=== PATIENT | female | born 1980 | race Caucasian/White ===

== ENCOUNTER 2017-10-17 05:26 | Emergency (ER) | payer OTHER, SELFPAY ==
[2017-10-17 05:26] VITALS: BP 99/66; PULSE 92; RESP 17; TEMP 36.5; O2SAT 98; BMI 20.5
--- NOTE | 2017-10-17 05:35 | ED.DCSUM_ITS ---
- ER Visit Summary Date of Service: 10/17/17 Chief Complaint: [] Right hand injury History of Present Illness: The patient is a 37 F [] injured her hand yesterday evening while walking her dog salt squirrel and pulled her over. She fell on her right hand. She is having pain in this hand with movement. Relieved with rest. Using ibuprofen. Current severity is moderate Physical Examination: [] Vital signs reviewed General: Well-nourished well-developed Head: Normocephalic atraumatic Eyes: Pupils equal round and reactive to light extraocular movements intact ENT: TMs clear no hemotympanum no trauma Neck: Nontender full range of motion Cardiovascular: Regular rate rhythm no murmurs normal S1-S2 Respiratory: No distress clear to auscultation bilaterally chest nontender Abdomen: Soft nontender nondistended normal bowel sounds no masses Back: Nontender no CVA tenderness Extremities: Tenderness with soft tissue swelling over the third through metacarpal phalangeal joints. Decreased range of motion secondary to pain Skin: Normal color no trauma Neuro alert oriented cranial nerves II through XII intact normal strength sensation reflexes Test Results: [] Emergency Department Course and Treatment: [] Given ibuprofen and ice pack. X- ray of the hand obtained and is negative. Patient given Jignesh bandage and will follow-up I feel she is is bruised her hand Treatment Plan: [] Disposition: [] Impression: [] Hand contusion This note was generated with [employer] dictation software. It may contain incorrect words, spelling, and punctuation that were not noted in review of the chart prior to signing ED Disposition - Plan for ED Patient: Chief Complaint: Upper Extremity Injury Referrals: Care Physician,No Primary [Primary Care Provider] -
[2017-10-17] MEDS: Ibuprofen 600 MG Tablet PO (05:36)
--- NOTE | 2017-10-17 05:40 | RAD_ITS ---
STUDY: X-RAY - RIGHT HAND REASON FOR EXAM: Female, 37 years old. DOG PULLED HER TO GROUND, LANDED ON HAND, SWELLING TECHNIQUE: 3 view(s) of the hand. COMPARISON: 09/12/2016 FINDINGS: Normal radiocarpal articulation. Normal distal radioulnar joint. Normal visualized carpal bones. Normal carpal articulations Normal carpometacarpal articulation of the thumb. Normal second through fifth carpometacarpal joints. Normal metacarpi. Normal metacarpophalangeal joint of the thumb. Normal interphalangeal joint of the thumb. Normal proximal and distal phalanges of the thumb. Normal metacarpophalangeal joints of the second through fifth fingers. Normal proximal and distal interphalangeal joints of the second through fifth fingers. Normal phalanges of the second through fifth fingers. The soft tissue structures are unremarkable. RAD/Hand Min 3 Views IMPRESSION: Normal x-ray examination of the hand. Electronically Signed: Ebenezer Fox MD at 5:52 EDT Tel , Service support ,
--- NOTE | 2017-10-17 05:49 | ED.DEP ---
ED Disposition - Plan for ED Patient: Disposition: Home or Assisted Living Chief Complaint: Upper Extremity Injury Instructions: ED Contusion Upper Ext Referrals: Care Physician,No Primary [Primary Care Provider] -
[2017-10-17 05:55] VITALS: BP 90/68; PULSE 83; RESP 17; O2SAT 100
== END 2017-10-17 06:04 | disposition home or self-care (01) ==
LOC: ED 06:02
PROVIDERS: Emergency Provider Emergency Medicine
DX: S60.221A Contusion of right hand, initial encounter (principal); W18.30XA Fall on same level, unspecified, initial encounter; Y93.K1 Activity, walking an animal; Y92.89 Other specified places as the place of occurrence of the external cause; Y99.8 Other external cause status
CPT/HCPCS: 73130; 99283

== ENCOUNTER 2017-11-13 17:23 | Emergency (ER) | payer OTHER, SELFPAY ==
[2017-11-13 17:24] VITALS: BP 102/56; PULSE 90; RESP 18; TEMP 36.6; O2SAT 97; BMI 20.5
[2017-11-13 17:47] VITALS: BP 128/82; PULSE 82; RESP 18; O2SAT 96
--- NOTE | 2017-11-13 18:03 | ED.DCSUM_ITS ---
- ER Visit Summary Date of Service: 11/13/17 Chief Complaint: Back pain History of Present Illness: The patient is a 37 F who noted pain and not to her tailbone area yesterday. She states she was rubbing it. Today she noted a bruised area. She denies any recent injury or prior fracture. Physical Examination: Vital signs unremarkable. Patient sitting upright in bed no acute distress. Back examination was no tenderness of the lumbar region. She has reproducible tenderness along the lower sacrum along the junction of the coccyx. There is no overlying ecchymosis at this time. There are no palpable masses or signs of abscess. Test Results: Sacrum and coccyx x-rays are obtained and are unremarkable. Emergency Department Course and Treatment: She will be treated with naproxen. I started her on using a rolled up blanket to elevate her hips off the chair to take pressure off her tailbone. Treatment Plan: [] Disposition: Discharge Impression: Sacrum contusion This note was generated with [employer] dictation software. It may contain incorrect words, spelling, and punctuation that were not noted in review of the chart prior to signing ED Disposition - Plan for ED Patient: Chief Complaint: Back Referrals: Care Physician,No Primary [Primary Care Provider] -
--- NOTE | 2017-11-13 19:04 | ED.DEP ---
ED Disposition - Plan for ED Patient: Disposition: Home or Assisted Living Chief Complaint: Back Instructions: ED Contusion Sacrum Coccyx Prescriptions: Naproxen [Naprosyn] 500 mg PO BID PRN PRN #20 tablet PRN Reason: Pain Referrals: Cristy Hein MD [STAFF PHYSICIAN] - As Needed
[2017-11-13] MEDS: Naproxen 500 MG Tablet PO (19:13)
== END 2017-11-13 19:15 | disposition home or self-care (01) ==
PROVIDERS: Emergency Provider Emergency Medicine
DX: S30.0XXA Contusion of lower back and pelvis, initial encounter (principal); X58.XXXA Exposure to other specified factors, initial encounter; Y93.89 Activity, other specified; Y92.89 Other specified places as the place of occurrence of the external cause; Y99.9 Unspecified external cause status
CPT/HCPCS: 72220; 99283

== ENCOUNTER → 2018-08-01 14:19 | Outpatient (CLI) | payer OTHER, SELFPAY ==
[2018-08-01 10:06] VITALS: BMI 20.5
== END ==
PROVIDERS: Referring Provider Physician Assistant; Visit Provider Physician Assistant
DX: J02.9 Acute pharyngitis, unspecified (principal)
CPT/HCPCS: 87081

== ENCOUNTER 2019-01-06 17:53 | Emergency (ER) | payer OTHER, SELFPAY ==
[2018-08-01 10:06] VITALS: BMI 20.5
[2019-01-06 17:54] VITALS: BP 103/66; PULSE 101; RESP 17; TEMP 36.9; O2SAT 97; BMI 19.8
--- NOTE | 2019-01-06 18:16 | RAD_ITS ---
STUDY: X-RAY CHEST REASON FOR EXAM: Female, 38 years old. Protective cough and congestion. TECHNIQUE: Frontal and lateral views of the chest. COMPARISON: 11/11/2016. FINDINGS: The lungs are clear and no infiltrates or effusions. Expanded. There is no demonstrated pleural abnormality. Normal size heart. Normal mediastinum and radha. Normal visualized pulmonary arteries. Normal visualized aortic arch and descending thoracic aorta. Normal visualized thoracic spine. Normal visualized ribs, clavicles, and shoulders. There is no demonstrated abnormality of the visualized soft tissue structures of the upper abdomen. RAD/Chest PA and Lateral IMPRESSION: No acute chest disease. Hyperexpansion of the lungs possibly from asthma in this age group. Electronically Signed: Boom Cazares MD at 18:41 EDT , Service support ,
--- NOTE | 2019-01-06 19:17 | ED.VISSUMM ---
- ER Visit Summary Date of Service: 01/06/19 Chief Complaint: Cough History of Present Illness: The patient is a 38 F who presents with a cough that has been persistent for the past 2 weeks. Patient also admits to bilateral ear pain. Patient describes her pain as aching and sharp. Patient states pain is over both ears. Patient admits to mild headache and sinus pressure. Patient states she has had some nausea and vomiting. Patient states she is coughing up some green and brown sputum. Patient admits to subjective fevers and chills but did not take her temperature. Patient denies any chest pain or shortness of breath. Physical Examination: Vital signs are stable. Patient is afebrile. Patient is in no acute distress. Oral mucosa is pink and moist. Neck is supple. Trachea is midline. There is no JVD noted. Heart was regular rate and rhythm. Lungs are clear and equal bilaterally. Abdomen is soft. Bowel sounds are normal. There is no tenderness. Cranial nerves II through XII are intact. There are no focal motor or sensory deficits noted. Test Results: PA and lateral chest x-ray was obtained. There is no acute cardiopulmonary process. Emergency Department Course and Treatment: Patient was feeling better on reevaluation. Patient was advised of her results. Patient was advised that this is most likely a viral upper respiratory infection. Patient was instructed to drink plenty of fluids. Patient was instructed to follow-up with her primary care physician in 5 to 7 days. Patient was instructed to take Tylenol or ibuprofen as needed for any pain or fevers. Patient understood and was agreeable with the plan. All questions were answered. Disposition: Discharge home Impression: Viral upper respiratory infection This note was generated with [employer] dictation software. It may contain incorrect words, spelling, and punctuation that were not noted in review of the chart prior to signing ED Disposition - Plan for ED Patient: Disposition: Home or Assisted Living Diagnosis: Viral upper respiratory tract infection with cough Instructions: URI, Viral, No Abx (Adult) Referrals: Care Physician,Shauna Primary [Primary Care Provider] - Dilan Matos DO [NON CLINICAL AFFILIATE] - 5-7 Days Hilda Infante [NON-STAFF] - 5-7 Days
[2019-01-06 19:48] VITALS: PULSE 76; RESP 20; O2SAT 95
== END 2019-01-06 19:49 | disposition home or self-care (01) ==
PROVIDERS: Emergency Provider Emergency Medicine
DX: J06.9 Acute upper respiratory infection, unspecified (principal); Z72.0 Tobacco use
CPT/HCPCS: 71046; 99282

== ENCOUNTER 2019-07-29 22:54 | Emergency (ER) | payer OTHER, SELFPAY ==
[2019-07-29 22:55] VITALS: BP 112/73; PULSE 102; RESP 16; TEMP 36.6; O2SAT 99; BMI 18.3
--- NOTE | 2019-07-29 23:24 | ED.VIS.GEN ---
History of Present Illness Chief Complaint: Allergic Reaction Informant: Patient Onset: Today Current Severity: Mild Maximum Severity: Moderate Narrative: Patient presents with concern for possible allergic reaction. Late last night she was using a craft kit to make a resin for a project she was working on. She states she was not wearing the correct kind of gloves and the material burned through her gloves and got onto her hands. Today she has pain on her hands and she is concerned that she may be having allergic reaction. - Past Medical History (1) Anxiety and depression Status: Chronic Past Medical History - Allergies and Home Meds Allergies/Adverse Reactions: Allergies Penicillins [PCN] Allergy (Verified 07/29/19 22:59) Anaphylaxis Primary Care Physician: Care Physician,No Primary [Primary Care Provider] - Prior records reviewed: Yes Smoking Status: Current every day smoker Review of Systems General: Denies: Chills, Fever Eyes: Denies: Visual changes - bilaterally ENT: Denies: Bilateral ear pain Cardiovascular: Denies: Chest pain Respiratory: Denies: Dyspnea Gastrointestinal: Denies: Abdominal pain, Nausea, Vomiting Genitourinary: Denies: Dysuria Musculoskeletal: Reports: Extremity Pain Skin: Denies: Rash Neurological: Denies: Parasthesia Hematologic: Denies: Easy bruising, Easy bleeding Allergy: Denies: Uticaria Physical Exam Vital Signs/Narrative: Vital Signs Temp Pulse Resp BP Pulse Ox 07/29/19 22:55 97.8 F 102 H 16 112/73 99 Inital Vital Signs reviewed: Yes General: Well nourished, Well developed Head: Normocephalic ENT: Moist mucous membranes Neck: Supple Cardiovascular: Regular rate, Regular rhythm Respiratory: No distress, CTA bilaterally Abdomen: Soft, Nontender Extremities: - - Patient has tenderness along the radial side of her index and middle fingers on both hands. There are a few scattered areas of pain across the back of her hands. No significant erythema or swelling is noted. Neurological: Alert, Oriented x3, Normal Strength, Normal Sensation Psychological: Normal affect Diagnostic/Tx/Re-eval - Medical Decision Making Patient was using a kit called [employer] Clear Cast by [employer]. I did review the active ingredients in these products. They are capable of causing contact dermatitis or alkaline burn. Based on her symptoms my suspicion is that she likely has an alkaline burn to her skin. This occurred nearly 24 hours ago. There are no open lesions at this time. Hands will be cleansed and dressed. She is written off work for the next 2 days. ED Disposition - Plan for ED Patient: Disposition: Home or Assisted Living Diagnosis: Chemical burn of hand Instructions: ED BURN Chemical Referrals: Fast,Carmencita, DO [NON-STAFF] - As Needed
== END 2019-07-29 23:46 | disposition home or self-care (01) ==
PROVIDERS: Emergency Provider Emergency Medicine
DX: T23.402A Corrosion of unspecified degree of left hand, unspecified site, initial encounter (principal); T23.401A Corrosion of unspecified degree of right hand, unspecified site, initial encounter; T65.891A Toxic effect of other specified substances, accidental (unintentional), initial encounter; F17.200 Nicotine dependence, unspecified, uncomplicated; Y93.9 Activity, unspecified
CPT/HCPCS: 99282

== ENCOUNTER 2019-09-10 11:36 | Emergency (ER) | payer OTHER, SELFPAY ==
[2019-09-10 11:37] VITALS: BP 132/83; PULSE 97; RESP 18; TEMP 36.9; O2SAT 100; BMI 18.4
--- NOTE | 2019-09-10 11:52 | ED.VISSUMM ---
- ER Visit Summary Date of Service: 09/10/19 Chief Complaint: [Redness and swelling to tattoo site] History of Present Illness: The patient is a 39 F [presents the emergency department complaint of redness and swelling to her tattoo site on her right leg. Patient states that she did her own tattoo 2-1/2 weeks ago. Redness and swelling only start about a week and a half ago however. She denies any fevers. She has had some chills.] Physical Examination: [HEENT-PERRLA, EOMI. Cranial nerves II through XII grossly intact. TMs clear. Mucous membranes moist. No adenopathy. Cardiovascular-regular rate and rhythm without murmur or ectopy Lungs-clear to auscultation, chest wall stable without crepitus or subcu emphysema Abdomen-normoactive bowel sounds, soft, nontender, no rebound or rigidity, no peritoneal signs. Extremities-intact ?4, normal range of motion, normal pulses, atraumatic. Right lower extremity-patient has erythema around the 2 tattoos on her medial calf. There is some excoriation. No evidence of abscess. Site is slightly tender to palpation. She is neurovascular intact.] Test Results: [None indicated] Emergency Department Course and Treatment: [Patient was treated with clindamycin as well as Bactrim. She is advised that she might be also having allergic reaction to the dye possibly.] Treatment Plan: [Patient will be treated with clindamycin and Bactrim as she does have a pen allergy.] Disposition: [Discharged home in stable condition. Patient will be given referral to primary care physician for follow-up.] Impression: [Cellulitis right lower extremity] This note was generated with [employer] dictation software. It may contain incorrect words, spelling, and punctuation that were not noted in review of the chart prior to signing ED Disposition - Plan for ED Patient: Referrals: Care Physician,No Primary [Primary Care Provider] -
--- NOTE | 2019-09-10 11:54 | ED.DEP ---
ED Disposition - Plan for ED Patient: Instructions: Cellulitis Prescriptions: Smz/Tmp Ds [Bactrim Ds] 1 tab PO BID #14 tab Prescription Printed Clindamycin HCl [Cleocin] 300 mg PO Q6H #40 cap Prescription Printed Referrals: Care Physician,No Primary [Primary Care Provider] - Ebenezer Rojas MD [NON-STAFF] - 5-7 Days
[2019-09-10 12:01] VITALS: BP 132/83; PULSE 97; RESP 18; TEMP 36.9; O2SAT 100
[2019-09-10] MEDS: Clindamycin HCl 150 MG Capsule 300 MG PO (12:02)
[2019-09-10] MEDS: Smz/Tmp Ds Tablet 1 TABLET PO (12:02)
== END 2019-09-10 12:05 | disposition home or self-care (01) ==
LOC: ED 12:00
PROVIDERS: Emergency Provider Emergency Medicine
DX: L03.115 Cellulitis of right lower limb (principal); F17.200 Nicotine dependence, unspecified, uncomplicated
CPT/HCPCS: 99283

== ENCOUNTER 2020-05-19 09:35 | Emergency (ER) | payer OTHER, SELFPAY ==
[2019-12-03 16:20] VITALS: BMI 18.4
[2020-05-19 09:36] VITALS: BP 102/66; PULSE 103; RESP 18; TEMP 35.9; O2SAT 98; BMI 19.9
--- NOTE | 2020-05-19 09:55 | ED.VISSUMM ---
- ER Visit Summary Date of Service: 05/19/20 Chief Complaint: Right hand and primarily right long finger pain post fall and injury History of Present Illness: The patient is a 39 F no seen past medical history. Prior cholecystectomy, hysterectomy and right forearm tendon surgery. Patient states she was walking up steps at 2 AM this morning after she got off work slipped and fell and injured her right hand versus a pole. Primarily complaining of right long finger pain. She is right-hand dominant. States she has chronic decreased sensation to her hand secondary to a nerve injury. She denies any other injuries. Physical Examination: Well-appearing middle-aged female. Vital signs stable afebrile. Strong smell of tobacco. HEENT exam unremarkable atraumatic. Neck nontender. Lungs clear to auscultation bilaterally. Heart regular rhythm no murmur rate about 100. Chest wall nontender. Abdomen soft nontender normal bowel sounds no peritoneal signs. Left upper extremity both lower extremities are nontender. No deformity. Normal range of motion. Right shoulder, elbow and wrist are nontender normal range of motion. Right hand diffuse tenderness more so over the right long finger. Decreased flexion due to pain. No gross bony deformity. Normal cap refill. States she has decreased sensation which is chronic and not new. She is a palpable radial pulse. Skin is intact. Test Results: Right hand x-ray 3 views interpreted by myself shows no acute normality. No fracture or dislocation. Repeat exam doing well at 10:35 AM. Emergency Department Course and Treatment: With fall on icy steps with right hand trauma. X-ray being obtained. 1 [place] for pain. Treatment Plan: Ice and elevate. Motrin and Tylenol for pain. Follow-up if not improving for repeat evaluation and possible repeat x-rays if needed. Disposition: Discharge Impression: Slipped and fell on the ice Acute right hand contusion This note was generated with [employer] dictation software. It may contain incorrect words, spelling, and punctuation that were not noted in review of the chart prior to signing ED Disposition - Plan for ED Patient: Referrals: Care Physician,No Primary [Primary Care Provider] -
[2020-05-19] MEDS: HYDROcodone Bitartrate/Apap 5/325 Tablet PO (10:05)
--- NOTE | 2020-05-19 10:10 | RAD_ITS ---
STUDY: X-RAY - RIGHT HAND REASON FOR EXAM: Female, 39 years old. Fall and pain attention to right middle finger TECHNIQUE: 4 view(s) of the hand. COMPARISON: Comparison is made with prior study dated 11/27/2019. FINDINGS: Normal radiocarpal articulation. Normal distal radioulnar joint. Normal visualized carpal bones. Normal carpal articulations Normal carpometacarpal articulation of the thumb. Normal second through fifth carpometacarpal joints. Normal metacarpi. Normal metacarpophalangeal joint of the thumb. Normal interphalangeal joint of the thumb. Normal proximal and distal phalanges of the thumb. Normal metacarpophalangeal joints of the second through fifth fingers. Normal proximal and distal interphalangeal joints of the second through fifth fingers. Normal phalanges of the second through fifth fingers. Soft tissue swelling. RAD/Hand Min 3 Views IMPRESSION: Soft tissue swelling. Electronically Signed: Lázaro Shepherd MD at 10:54 EST , Service support ,
--- NOTE | 2020-05-19 10:37 | ED.DEP ---
ED Disposition - Plan for ED Patient: Disposition: Home or Assisted Living Instructions: ED Contusion, Upper Extremity Referrals: Hilda Infante [NON-STAFF] - 1 Week if not improving Additional Instructions: Ice and elevate your right hand to decrease pain and swelling. Your x-rays were unremarkable there is no obvious broken bone or dislocation. Tylenol and/or Motrin for pain and to decrease swelling. This should progressively get better if not follow-up to have it reevaluated and possibly maddy-rayed but this time the x-rays are normal.
[2020-05-19 10:42] VITALS: BP 100/71; PULSE 86; RESP 16; O2SAT 98
== END 2020-05-19 10:45 | disposition home or self-care (01) ==
PROVIDERS: Emergency Provider Emergency Medicine
DX: S60.221A Contusion of right hand, initial encounter (principal); F17.200 Nicotine dependence, unspecified, uncomplicated; Z90.49 Acquired absence of other specified parts of digestive tract; W00.0XXA Fall on same level due to ice and snow, initial encounter
CPT/HCPCS: 73130; 99283

== ENCOUNTER 2020-09-27 14:53 | Emergency (ER) | payer OTHER, SELFPAY ==
[2020-09-27 14:54] VITALS: BP 108/62; PULSE 110; RESP 16; TEMP 36.8; O2SAT 98; BMI 19.8
--- NOTE | 2020-09-27 16:08 | EX.ED.GENINJ ---
HPI History of Present Illness Chief Complaint: Laceration Informant: patient Narrative Narrative: Patient is a 40-year-old female who presents to the emergency department for laceration to right lower extremity. She states that she was cutting with a paper box maker when it slipped and struck her leg. Bleeding controlled prior to arrival in the emergency department. She denies any loss of sensation or strength in the leg. This laceration is approximately 1 cm. Patient states it is very painful. Her last tetanus shot was within the past 5 years. She denies any other injury. [facility] Medical History Allergies Anxiety back pain Foreign body of skin of right palm Frequent headaches Hearing problem Knee pain Neck pain Shoulder pain Home Medications NK 05/19/20 [History Last Taken Unknown] Allergy/AdvReac Type Severity Reaction Status Date / Time Penicillins [PCN] Allergy Anaphylaxis Verified 09/27/20 14:54 Family History Father Alcoholism Cancer Mother Anxiety Arthritis History of blood clots Depression Diabetes Heart disease Hypertension High cholesterol Respiratory disease Uncle Alcoholism History of defect Cancer Other CVA (cerebral vascular accident) Surgical History History of cholecystectomy History of hysterectomy Social History Smoking Status: Current every day smoker tobacco type: cigarettes alcohol intake: never substance use type: does not use additional social history: DOES NOT TAKE ASPIRIN DOES TAKE IBUPROFEN NEEDED ROS ROS ED Constitutional Constitutional ED: Denies chills or fever(s) ENT ENT ED: Denies epistaxis or rhinorrhea Cardiovascular Cardiovascular: Denies chest pain Respiratory/Chest Respiratory/Chest: Denies cough or dyspnea Gastrointestinal Gastrointestinal: Denies abdominal pain, nausea or vomiting Musculoskeletal Musculoskeletal: Denies back pain or neck pain Integumentary Denies rash Neurologic Neurologic: Denies headache(s) or weakness EXAM Physical Exam Const Vital Signs: 09/27/20 14:54 Temperature 98.3 F Temperature Source Temporal Pulse Rate 110 H Respiratory Rate 16 Blood Pressure 108/62 Blood Pressure Mean 77 Pulse Ox 98 Oxygen Delivery Method Room Air Positive well nourished and well developed General Appearance ED: well developed and NAD HEENT Reports normocephalic, head/scalp atraumatic and moist mucous membranes Eyes PERRL and EOMs intact bilaterally Neck supple Resp normal respiratory effort and clear to auscultation bilaterally Auscultation: Negative for rales, rhonchi or wheezes Cardio regular rate, regular rhythm and no murmurs Extremity normal to inspection General Extremety ED: Negative for edema or tenderness General Extremity: Negative for edema Neuro no sensory deficits noted Sensorium / Orientation: alert Motor Exam: strength 5/5 throughout Psych mental status grossly normal Skin no rashes or lesions noted Skin Narrative: 1 cm linear laceration to right anterior see. No active bleeding. No foreign body appreciated. No underlying vascular or tendon injury. PROC Procedures Lacerations leg: Length: 0.39 in Depth: Skin Shape: Linear Prep: Sterile Conditions and Shure-Clens Laceration repair: Lidocaine Number of Sutures/Rogelio: 2 Suture Information: Ethilon Comment: Patient tolerated procedure well without any complication. MDM MDM MDM Narrative Medical decision making narrative: Patient presents to the ED for laceration caused by a paper box maker. This was repaired using sutures. Wound cleaned prior to repair. She tolerated procedure well. Antibiotic ointment applied as well as Band-Aid. Sutures will need to be removed in 7 to 10 days. She is to follow-up with her PCP for this. She is to monitor for evidence of infection. Impression: #1 leg laceration Discharge Plan Triage Chief Complaint: Laceration ED Provider: Elie Mina Dx/Rx/DC Orders Instructions: ED Laceration: All Closures Prescriptions: No Action NK RF: 0 Primary Care Provider: Care Physician,No Primary Referrals: Care Physician,No Primary [Primary Care Provider] - 7 Days for suture removal Disposition Disposition: Home, Self Care Discharge Date/Time: 09/27/20 16:10
== END 2020-09-27 16:10 | disposition home or self-care (01) ==
PROVIDERS: Emergency Provider Emergency Medicine
DX: S81.811A Laceration without foreign body, right lower leg, initial encounter (principal); F17.210 Nicotine dependence, cigarettes, uncomplicated; W26.0XXA Contact with knife, initial encounter
CPT/HCPCS: 12001; 99282

== ENCOUNTER 2020-10-06 17:00 | Emergency (ER) | payer OTHER, SELFPAY ==
[2020-10-06 17:00] VITALS: BP 102/75; PULSE 120; RESP 18; TEMP 37.1; O2SAT 96; BMI 19.9
--- NOTE | 2020-10-06 17:15 | ED.VIS.LOWEX ---
HPI History of Present Illness HPI Narrative: Returns for suture removal left lower extremity. Chief Complaint: Wound Informant: patient Onset/Context/Timing Onset: Weeks Narrative Narrative: 40-year-old female presents for suture removal. No severe past medical history. Had sutures placed left lower leg 9 days ago. Has not had any drainage. Prior similar symptoms: No Recent Illness/Hospitalization: No PFSH PFSH Medical History (Updated 10/06/20 @ 17:[address] Drew You MD) Allergies Anxiety back pain Foreign body of skin of right palm Frequent headaches Hearing problem Knee pain Neck pain Shoulder pain Home Medications NK 05/19/20 [History Last Taken Unknown] Allergy/AdvReac Type Severity Reaction Status Date / Time Penicillins [PCN] Allergy Anaphylaxis Verified 10/06/20 17:02 Family History Father Alcoholism Cancer Mother Anxiety Arthritis History of blood clots Depression Diabetes Heart disease Hypertension High cholesterol Respiratory disease Uncle Alcoholism History of defect Cancer Other CVA (cerebral vascular accident) Surgical History History of cholecystectomy History of hysterectomy Social History Smoking Status: Current every day smoker tobacco type: cigarettes alcohol intake: never substance use type: does not use additional social history: DOES NOT TAKE ASPIRIN DOES TAKE IBUPROFEN NEEDED ROS ROS ED ROS Narrative Denies Review of Systems ROS Unobtainable: Denies due to encephalopathy Constitutional Constitutional ED: Denies chills or fever(s) Eyes Eyes: Denies change in vision ENT ENT ED: Denies ear pain Cardiovascular Cardiovascular: Denies chest pain Respiratory/Chest Respiratory/Chest: Denies dyspnea Gastrointestinal Gastrointestinal: Denies abdominal pain or nausea Genitourinary Genitourinary ED: Denies dysuria Musculoskeletal Musculoskeletal: Denies myalgias Integumentary Denies rash Neurologic Neurologic: Denies headache(s) Psychiatric Psychiatric: Denies depression Endocrine Endocrinology: Denies polyuria Hematologic/Lymphatic Hematologic/Lymphatic: Denies easy bruising Allergic/Immunologic Allergic/Immunologic ED: Denies urticaria EXAM Physical Exam Narrative Exam Narrative: Middle-aged female no acute distress. Vital signs stable afebrile. Exam unremarkable except left lower leg just above the medial malleolus. About a 1 inch laceration has been repaired with 2 sutures. Clinically looks well. No signs of infection. Currently no bleeding or drainage. No hematoma. No streaks. I removed both sutures without any difficulty. Patient did well. Const Vital Signs: 10/06/20 17:00 Temperature 98.7 F Temperature Source Temporal Pulse Rate 120 H Respiratory Rate 18 Blood Pressure 102/75 Blood Pressure Mean 84 Pulse Ox 96 Oxygen Delivery Method Room Air HEENT Reports moist mucous membranes normocephalic and atraumatic Eyes PERRL Neck full ROM and supple Chest Wall inspection of chest normal and palpation of chest normal Resp normal respiratory effort, no retractions and clear to auscultation bilaterally Cardio regular rate, regular rhythm, S1 normal heart sound, S2 normal heart sound and no murmurs GI non-tender, non-distended and no masses Auscultation: normoactive bowel sounds Palpation: soft Back/Spine no CVA tenderness Extremity normal to inspection Extremity Narrative: Laceration repair left lower leg above the ankle about 1 inch. 2 sutures removed. No signs of infection. Neuro oriented x3 and moves all extremities Sensorium / Orientation: alert Psych mental status grossly normal Skin Skin Narrative: Well-healing left lower leg laceration has been repaired. Lesions: no lesions Rashes: no rashes MDM MDM MDM Narrative Medical decision making narrative: I removed the sutures. Patient did well. Wound care. Discharge Plan Triage Chief Complaint: Wound ED Provider: Drew You Dx/Rx/DC Orders Clinical Impression: Visit for suture removal Instructions: ED Stitches/Staple Removal No ... Prescriptions: No Action NK RF: 0 Primary Care Provider: Care Physician,No Primary Referrals: Cristy Hein MD [STAFF PHYSICIAN] - As Needed Care Physician,No Primary [Primary Care Provider] - Activity Restrictions/Additional Instructions: Keep area clean. Tylenol and/or Motrin for pain. Watch for redness or pus. At this time there is no signs of infection. Disposition Disposition: Home, Self Care
[2020-10-06 18:00] VITALS: RESP 16
== END 2020-10-06 18:00 | disposition home or self-care (01) ==
PROVIDERS: Emergency Provider Emergency Medicine
DX: Z48.02 Encounter for removal of sutures (principal); F17.210 Nicotine dependence, cigarettes, uncomplicated
CPT/HCPCS: 99282

== ENCOUNTER 2020-12-02 07:19 | Emergency (ER) | payer OTHER, SELFPAY ==
[2020-12-02 07:20] VITALS: BP 112/95; PULSE 94; RESP 18; TEMP 36.4; O2SAT 100; BMI 19.8
--- NOTE | 2020-12-02 07:38 | ED.VIS.BACK ---
HPI History of Present Illness Chief Complaint: Other, Pain/Inj Detail of Chief Complaint: Neck and upper back pain. Informant: patient Onset/Context/Timing Onset: Days Context: Gradual Onset Timing: Continuous Quality: Aching Location: Thoracic Current Severity: Mild Maximum Severity: Moderate Worsened by: improves with Movement Relieved by: Remaining Still Associated Symptoms Associated Symptoms: Negative for Numbness, Tingling, Radiation to Right Leg, Radiation to Left Leg, Fever, Abdominal Pain, Dysuria, Unable to Ambulate, Unable to Transfer, Urinary Retention, Urinary Incontinence, Constipation and Fecal Incontinence Narrative Narrative: 40-year-old female history of neck and back problems never had MRI. States she has pain in her upper shoulders and neck for the last several days. Worse with movement. At times does radiate to her shoulders or down her right arm. She denies any weakness. No numbness. Prior similar symptoms: Yes Recent Illness/Hospitalization: No [facility] Medical History (Updated 12/02/20 @ 07:[address] Drew You MD) Allergies Anxiety back pain Foreign body of skin of right palm Frequent headaches Hearing problem Knee pain Neck pain Shoulder pain Home Medications metaxalone [Skelaxin] 800 mg PO TID 7 Days #21 tab 12/02/20 [Rx Last Taken Unknown] Allergy/AdvReac Type Severity Reaction Status Date / Time Penicillins [PCN] Allergy Anaphylaxis Verified 12/02/20 07:22 Family History Father Alcoholism Cancer Mother Anxiety Arthritis History of blood clots Depression Diabetes Heart disease Hypertension High cholesterol Respiratory disease Uncle Alcoholism History of defect Cancer Other CVA (cerebral vascular accident) Surgical History History of cholecystectomy History of hysterectomy Social History Smoking Status: Current every day smoker tobacco type: cigarettes alcohol intake: never substance use type: does not use additional social history: DOES NOT TAKE ASPIRIN DOES TAKE IBUPROFEN NEEDED ROS ROS ED ROS Narrative Denies recent illness. Review of Systems ROS Unobtainable: Denies due to encephalopathy Constitutional Constitutional ED: Denies fever(s) Eyes Eyes: Denies change in vision ENT ENT ED: Denies ear pain Cardiovascular Cardiovascular: Denies chest pain Respiratory/Chest Respiratory/Chest: Denies dyspnea Gastrointestinal Gastrointestinal: Denies abdominal pain, diarrhea, nausea or vomiting Genitourinary Genitourinary ED: Denies dysuria Musculoskeletal Musculoskeletal: Reports back pain and neck pain Integumentary Denies rash Neurologic Neurologic: Denies headache(s) Psychiatric Psychiatric: Denies depression Endocrine Endocrinology: Denies polyuria Hematologic/Lymphatic Hematologic/Lymphatic: Denies easy bruising Allergic/Immunologic Allergic/Immunologic ED: Denies urticaria EXAM Physical Exam Narrative Exam Narrative: No history of no acute distress vital signs stable afebrile HEENT exam unremarkable. Lungs clear to auscultation bilaterally. Heart regular rhythm. Abdomen soft nontender. Extremities moves all 4. 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 Back she has paraspinal and upper back soft tissue tenderness consistent with muscle spasm. She is able do flexion-extension of her neck. There is some discomfort. This appears to be musculoskeletal pain. Const Vital Signs: 12/02/20 07:20 Temperature 97.6 F L Temperature Source Temporal Pulse Rate 94 Respiratory Rate 18 Blood Pressure 112/95 H Blood Pressure Mean 100 Pulse Ox 100 Oxygen Delivery Method Room Air Positive well nourished and well developed; Negative for obese, cachectic, contractures or unkempt General Appearance ED: well developed and NAD; Negative for unkempt, cachectic or contractures Nutritional Appearance: Negative for cachectic or obese HEENT Reports moist mucous membranes Negative for trauma or tenderness Eyes PERRL and EOMs intact bilaterally Neck no lymphadenopathy, supple and no JVD General: Negative for tenderness Resp normal respiratory effort and clear to auscultation bilaterally Cardio regular rate, regular rhythm, S1 normal heart sound, S2 normal heart sound and no murmurs GI normal to inspection, nondistended, normoactive bowel sounds, soft to palpation, non-tender, non-distended and no masses Palpation: Negative for tender or guarding Back/Spine normal to inspection and no thoracic nor lumbar tenderness Cervical Spine: Negative for cervical spine tenderness and paracervical muscle tenderness Thoracic Spine / Upper Back: paraspinal muscle tenderness Lumbar Spine / Lower Back: straight leg raise negative bilaterally; Negative for straight leg raise positive right or straight leg raise positive - left Extremity normal to inspection General Extremety ED: Negative for edema or tenderness General Extremity: Negative for edema Neuro oriented x3 and no sensory deficits noted Sensorium / Orientation: alert; Negative for confused, lethargic or stuporous Motor Exam: strength 5/5 throughout Psych mental status grossly normal Appearance: Negative for unkempt Skin no rashes or lesions noted and no wounds General Skin Exam: Negative for jaundice MDM MDM MDM Narrative Medical decision making narrative: Patient with muscle spasms of her neck and upper back. Will be treated with p.o. Valium here and Motrin. At home anti-inflammatories and Skelaxin. Off work today. Follow-up for possible neck MRI if not improving. Discharge Plan Triage Chief Complaint: Other, Pain/Inj ED Provider: Drew You Dx/Rx/DC Orders Clinical Impression: Muscle spasm of back Instructions: ED Muscle Spasm Prescriptions: New metaxalone [Skelaxin] 800 mg tablet 800 mg PO TID 7 Days Qty: 21 RF: 0 Primary Care Provider: Care Physician,No Primary Referrals: Morgan Hercules MD [STAFF PHYSICIAN] - 1 Week if not improving Care Physician,No Primary [Primary Care Provider] - Activity Restrictions/Additional Instructions: Hot shower warm bath to relax the muscles in your neck and upper back. Massage. Motrin for pain and inflammation. Skelaxin which is a muscle relaxant. Initially it feel it will feel like it is not doing much and then within several days and started feeling much better. Follow-up with a local primary care physician if not improving. You may need an MRI of your neck. Disposition Disposition: Home, Self Care
[2020-12-02] MEDS: Ibuprofen 600 MG Tablet PO (07:44)
[2020-12-02] MEDS: diazePAM 5 MG Tablet 10 MG PO (07:44)
== END 2020-12-02 08:04 | disposition home or self-care (01) ==
LOC: ED 08:03
PROVIDERS: Emergency Provider Emergency Medicine
DX: M62.830 Muscle spasm of back (principal); F17.210 Nicotine dependence, cigarettes, uncomplicated
CPT/HCPCS: 99283

== ENCOUNTER 2021-04-27 15:14 | Emergency (ER) | payer MEDICARE, SELFPAY ==
[2021-04-27 15:15] VITALS: BP 107/75; PULSE 118; RESP 18; TEMP 36.3; O2SAT 99; BMI 20.5
--- NOTE | 2021-04-27 15:58 | EDS_ITS ---
HPI History of Present Illness Chief Complaint: General Illness Detail of Chief Complaint: Not feeling well for 3 days Informant: patient Narrative Narrative: Patient presents to the emergency department complaint of feeling well for the last 3 days. Patient complains of fever and body aches. She complains of a mild cough that she has had since New Year's. She has not had the Covid vaccine. Patient states that there have been sporadically Covid outbreaks at work. She denies any other sick contacts or sick contacts at home. Patient also complaining of some dysuria and some low back pain and thought she might have a urinary tract infection. Prior similar symptoms: Yes [facility] Medical History (Updated 04/27/21 @ 16:[address] Willian Bedolla, DO) Allergies Anxiety back pain Foreign body of skin of right palm Frequent headaches Hearing problem Knee pain Neck pain Shoulder pain Home Medications metaxalone [Skelaxin] 800 mg PO TID 7 Days #21 tab 12/02/20 [Rx Last Taken Unknown] Allergy/AdvReac Type Severity Reaction Status Date / Time Penicillins [PCN] Allergy Anaphylaxis Verified 04/27/21 15:16 Family History Father Alcoholism Cancer Mother Anxiety Arthritis History of blood clots Depression Diabetes Heart disease Hypertension High cholesterol Respiratory disease Uncle Alcoholism History of defect Cancer Other CVA (cerebral vascular accident) Surgical History History of cholecystectomy History of hysterectomy Social History Smoking Status: Current every day smoker tobacco type: cigarettes alcohol intake: never substance use type: does not use additional social history: DOES NOT TAKE ASPIRIN DOES TAKE IBUPROFEN NEEDED ROS ROS ED Constitutional Constitutional ED: Reports systems reviewed and no addt'l complaints, except as documented; Denies body ache(s), change in weight or chills Eyes Eyes: Denies acute decrease in peripheral vision, change in vision, double vision or loss of vision ENT ENT ED: Reports none; Denies ear pain, lip swelling, loss taste/smell, neck pain, otalgia or sore throat Cardiovascular Cardiovascular: Reports none; Denies abdominal pain, chest pain with activity, leg edema, lightheadedness, palpitations, rapid heart rate or syncope Respiratory/Chest Respiratory/Chest: Reports none and cough; Denies change in mental status, dry cough, dyspnea, hemoptysis, shortness of breath at rest or shortness of breath with exertion Gastrointestinal Gastrointestinal: Reports none; Denies abdominal pain, change in stool character, diarrhea, hematemesis, hematochezia, melena, rectal bleeding or vomiting Genitourinary Genitourinary ED: Reports none and dysuria; Denies abdominal discomfort, anuria, genital pain or polyuria Musculoskeletal Musculoskeletal: Reports none, back pain and myalgias; Denies arthralgias, difficulty walking, extremity pain or muscle weakness Integumentary Reports none; Denies abscess or rash Neurologic Neurologic: Reports none and headache(s); Denies abnormal gait, confusion, focal weakness, frequent falls, loss of vision, numbness, paresthesias, radicular pain, vertigo or weakness Psychiatric Psychiatric: Reports systems reviewed and no addt'l complaints, except as documented and none; Denies behavioral changes, confusion, difficulty concentr ating, hallucinations, suicidal ideation, tactile hallucinations or visual hallucinations Endocrine Endocrinology: Denies none, cold intolerance, excessive sweating, fatigue or heat intolerance Hematologic/Lymphatic Hematologic/Lymphatic: Reports none; Denies anemia, easy bleeding or easy bruising Allergic/Immunologic Allergic/Immunologic ED: Denies as per HPI, none, lip swelling, mouth swelling, throat swelling, tongue swelling or hives EXAM Physical Exam Const Vital Signs: 04/27/21 15:15 04/27/21 16:06 Temperature 97.4 F L Temperature Source Temporal Pulse Rate 118 H Respiratory Rate 18 Respiratory Pattern Normal Blood Pressure 107/75 Blood Pressure Mean 85 Pulse Ox 99 Oxygen Delivery Method Room Air Positive well nourished and well developed General Appearance ED: well developed and NAD HEENT Reports TM's clear and moist mucous membranes normocephalic and atraumatic; Negative for trauma or tenderness Tympanic Membrane ED: Yes TM's clear Eyes PERRL and EOMs intact bilaterally General Eye ED: Negative for pale conjunctiva or scleral icterus Neck no lymphadenopathy, supple and no JVD General: Negative for tenderness Chest Wall inspection of chest normal and palpation of chest normal Chest: Negative for tenderness Resp normal respiratory effort and clear to auscultation bilaterally Effort and Inspection: Negative for respiratory distress or pain with movement Auscultation: Negative for rhonchi, wheezes or diminished lung sounds Cardio regular rate, regular rhythm, S1 normal heart sound, S2 normal heart sound and no murmurs Peripheral Pulses: pulses 2+ throughout GI normal to inspection, nondistended, normoactive bowel sounds, soft to palpation, non-tender, non-distended and no masses Back/Spine no CVA tenderness and no thoracic nor lumbar tenderness Extremity normal to inspection General Extremety ED: Negative for edema General Extremity: Negative for edema Neuro oriented x3, CN's II-XII intact bilaterally, no sensory deficits noted and gait normal Sensorium / Orientation: awake, alert, oriented to person, oriented to place and oriented to time Motor Exam: strength 5/5 throughout and strength abnormal Psych mental status grossly normal Skin no rashes or lesions noted and no wounds MDM MDM MDM Narrative Medical decision making narrative: Patient was positive for COVID-19. Urinalysis was unremarkable. At this point recommended just symptomatic care. Motrin or Tylenol for discomfort and fever control. Advised to return if increasing shortness of breath or condition should worsen anyway. Lab Data Labs: Laboratory Results - last 24 hr 04/27/21 16:09 Urine Color Yellow Urine Clarity Clear Urine pH 6.5 Ur Specific [place] 1.015 Urine Protein Negative Urine Glucose (UA) Normal Urine Ketones 5 H Urine Occult Blood Negative Urine Nitrite Negative Urine Bilirubin Negative Urine Urobilinogen Normal Ur Leukocyte Esterase 25 H Urine RBC 0 SEEN Urine WBC 0 SEEN Ur Squamous Epith Cells 0 SEEN Urine Bacteria 0 SEEN Urine Mucus 0 SEEN Discharge Plan Triage Chief Complaint: General Illness ED Provider: Willian Bedolla Dx/Rx/DC Orders Clinical Impression: COVID-19 Instructions: Caring for Someone Who Has COVID-19 Prescriptions: No Action metaxalone [Skelaxin] 800 mg tablet 800 mg PO TID 7 Days Qty: 21 RF: 0 Primary Care Provider: Care Physician,No Primary Referrals: Vasquez Fraire MD [STAFF PHYSICIAN] - 5-7 Days Care Physician,No Primary [Primary Care Provider] - Disposition Disposition: Home, Self Care
[2021-04-27 16:13] LABS: Bacteria 0 SEEN /hpf (None Seen); Mucous, Urine 0 SEEN /hpf (<or=2+); Red Blood Cells-Urine 0 SEEN /hpf (0-5); Squamous Epithelial Cells - UA 0 SEEN /hpf (5-10); White Blood Cells 0 SEEN /hpf (0-5)
[2021-04-27 16:20] LABS: Color, Urine Yellow (Yellow); Glucose, Dipstick Normal (Normal); Ketone-Dipstick 5 mg/dl (Negative); Leukocyte Esterase-Dipstick 25 /ul (Negative); Nitrite-Dipstick Negative (Negative); Occult Blood-Urine Negative /ul (Negative); Protein-Dipstick Negative (Negative); Specific Gravity, Urine 1.015 (1.002-1.030); Urine Bilirubin Dipstick Negative (Negative); Urine Clarity Clear (Clear); Urine Urobilinogen Normal (Normal); Urine pH 6.5 (5.0 - 8.0)
== END 2021-04-27 16:55 | disposition home or self-care (01) ==
LOC: ED 16:41
PROVIDERS: Emergency Provider Emergency Medicine; Visit Provider Emergency Medicine
DX: U07.1 COVID-19 (principal); F17.210 Nicotine dependence, cigarettes, uncomplicated
CPT/HCPCS: 81001; 87426; 99282

== ENCOUNTER 2022-12-09 10:14 | Emergency (ER) | payer SELFPAY ==
[2022-12-09 10:15] VITALS: BP 110/79; PULSE 76; RESP 18; TEMP 35.9; O2SAT 98; BMI 19.5
--- NOTE | 2022-12-09 10:44 | EKG12_ITS ---
Test Reason : LEFT ARM PAIN Blood Pressure : / mmHG Vent. Rate : 072 BPM Atrial Rate : 072 BPM P-R Int : 162 ms QRS Dur : 080 ms QT Int : 406 ms P-R-T Axes : 068 049 062 degrees QTc Int : 444 ms Normal sinus rhythm Normal ECG Confirmed by GAIL SULLIVAN, LALITO ([id number]), video news editor OLIVIA BLANDON ([id number]) on 01/10/2023 1:45:04 PM Referred By: CHARLIE Confirmed By:LALITO REYNOLDS MD
--- NOTE | 2022-12-09 10:54 | RAD_ITS ---
STUDY: X-RAY CHEST REASON FOR EXAM: Female, 42 years old. cp TECHNIQUE: PA and lateral views of the chest. COMPARISON: Comparison is made with prior study January 06, 2019. FINDINGS: Hyperinflation. The lungs are clear. There is no demonstrated pleural abnormality. Normal size heart. Normal mediastinum and radha. Normal visualized pulmonary arteries. Normal visualized aortic arch and descending thoracic aorta. Normal visualized thoracic spine. Normal visualized ribs, clavicles, and shoulders. There is no demonstrated abnormality of the visualized soft tissue structures of the upper abdomen. RAD/Chest PA and Lateral IMPRESSION: Hyperinflation. The lungs are clear. Electronically Signed: Lázaro Shepherd MD at 11:07 EDT ,
--- NOTE | 2022-12-09 11:29 | EDS_ITS ---
HPI History of Present Illness HPI Narrative: Patient is a 42-year-old female who is presenting to the ER today with chief complaint of bilateral anterior chest wall pain, pain to bilateral pectoralis major underneath her axilla where it attaches to bilateral upper arms. Patient is also having mild bilateral upper thoracic pain as well. 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 Patient does not recall any type of acute injury. Patient been having pain for the past month. Patient is here because of chest pain this not improving. Patient is a smoker, 1-2 packs a day. Patient is at bedside. No recent traveling. Patient takes no medications daily. Patient has no PCP. Patient said the pain is not any better with taking Tylenol over the counter anti-inflammatories, so she came in for evaluation. There is cardiac history on mother side of the family, patient's had no history of cardiac disease or self. Not diabetic, no cholesterol, hypertension, no other acute complaints. No cocaine use Chief Complaint: Upper Extremity Injury [facility] Medical History (Updated 12/09/22 @ 11:[address] Freddy Candelaria DO) Allergies Anxiety back pain Foreign body of skin of right palm Frequent headaches Hearing problem Knee pain Neck pain Shoulder pain Home Medications metaxalone 800 mg tablet (Skelaxin) 800 mg PO TID 7 days #21 tabs 12/02/20 [Rx Last Taken Unknown] Allergy/AdvReac Type Severity Reaction Status Date / Time Penicillins [PCN] Allergy Anaphylaxis Verified 12/09/22 10:15 Family History Father Alcoholism Cancer Mother Anxiety Arthritis History of blood clots Depression Diabetes Heart disease Hypertension High cholesterol Respiratory disease Uncle Alcoholism History of defect Cancer Other CVA (cerebral vascular accident) Surgical History History of cholecystectomy History of hysterectomy Social History Smoking Status: Current every day smoker tobacco type: cigarettes alcohol intake: never substance use type: does not use additional social history: DOES NOT TAKE ASPIRIN DOES TAKE IBUPROFEN NEEDED ROS ROS ED ROS Narrative REVIEW OF SYSTEMS: Unless otherwise stated in this report the patient's positive and negative responses for review of systems for constitutional, eyes, ENT, cardiovascular, respiratory, gastrointestinal, neurological, , musculoskeletal, and integument systems and related systems to the presenting problem are either stated in the history of present illness or were not pertinent or were negative for the symptoms and/or complaints related to the presenting medical problem. EXAM Physical Exam Narrative Exam Narrative: Vital signs reviewed and patient is not hypoxic. General: The patient appears well and in no apparent distress. Patient is resting comfortably on cart. Not toxic, lethargic, or listless. Patient smells of significant tobacco smoking products, very pleasant. Skin: Warm, dry, no pallor noted. There is no rash noted. Head: Normocephalic, atraumatic Eye: Normal conjunctiva, no drainage, EOMI. PERRL. Ears, Nose, Mouth, and Throat: oral mucosa is moist. Nares patent. Mouth without vesicles. Cardiovascular: Regular Rate and Rhythm, no murmurs, gallops, or rubs. Patient has moderate reproducible tenderness palpation to bilateral anterior chest wall, to bilateral pectoralis major and axilla bilateral where attaches to bilateral upper humerus. No rash, no swelling, no ecchymosis. Mild lateral and posterior chest wall pain, respiratory: Patient is in no distress, no accessory muscle use, lungs are clear to auscultation, no rales or rhonchi patient has decreased breath sounds bilateral, diffuse bilateral wheezing,. Back: non-tender, no CVA tenderness bilaterally to percussion. NO CTLS midline or paraspinal tenderness to palpation. GI: Soft, no tenderness t Musculoskeletal: The patient has full range of motion of all extremities and joints with no difficulty. Patient has no motor, no sensory deficits. Neurological: A&O x4, normal speech, no focal neurological deficits. Psychiatric: Cooperative Const Vital Signs: 12/09/22 10:15 12/09/22 10:30 Temperature 96.7 F L Temperature Source Temporal Pulse Rate 76 Respiratory Rate 18 Respiratory Effort Normal Non-Labored Blood Pressure 110/79 Blood Pressure Mean 89 Pulse Ox 98 Oxygen Delivery Method Room Air MDM MDM MDM Narrative Medical decision making narrative: Education was done at bedside on tobacco abuse, tobacco counseling was done for 3 to 5 minutes. EKG and chest x-ray showed no acute findings. No additional work-up at this time. Patient's heart score is 0. Patient was given education on smoking, quitting smoking, and emphysema. Patient is establish PCP. Patient will continue Tylenol and anti-inflammatories. No questions at discharge. Radiography Chest X-Ray - ED: Read by ED Physician (2 view chest x-ray read by Dr. Candelaria. No acute cardial pulm disease, no infiltrate, no effusion.) Diagnostic Testing: Clinical Impression(s) from Imaging Studies Chest X-Ray 12/09/22 10:54 IMPRESSION: Hyperinflation. The lungs are clear. Electronically Signed: Lázaro Shepherd MD at 11:07 EDT , EKG Initial EKG: Attestation: I personally reviewed and interpreted this EKG as follows: Comments: EKG interpretation. Normal sinus rhythm at 72 beats a minute. Normal axis deviation. No acute ST elevation, no acute ectopy. QTc of 444. Discharge Plan Triage Chief Complaint: Upper Extremity Injury Other Complaint: Chest Other ED Provider: Freddy Candelaria Dx/Rx/DC Orders Clinical Impression: Chest wall pain, chronic, Tobacco abuse counseling, Tobacco abuse Instructions: The Benefits of Living Smoke Free, Emphysema Dc, ED Chest Wall Pain, Costochondritis, ED How to Quit Smoking Prescriptions: No Action metaxalone [Skelaxin] 800 mg tablet 800 mg PO TID 7 Days Qty: 21 0RF Primary Care Provider: Care Physician,No Primary Referrals: Magalis Cadena DO [Med Staff - Active Staff] - Care Physician,No Primary [Primary Care Provider] - Activity Restrictions/Additional Instructions: Education on quitting smoking and emphysema was given to you for educational purposes. EKG and chest x-ray showed no acute findings. Continue taking Tylenol and anti-inflammatories, use ice, establish PCP. Disposition Disposition: Home, Self Care
== END 2022-12-09 11:42 | disposition home or self-care (01) ==
PROVIDERS: Emergency Provider Emergency Medicine; Visit Provider Emergency Medicine
DX: R07.89 Other chest pain (principal); F17.210 Nicotine dependence, cigarettes, uncomplicated
CPT/HCPCS: 71046; 93005; 99283

== ENCOUNTER 2023-03-03 16:14 | Emergency (ER) | payer SELFPAY ==
[2023-03-03 16:15] VITALS: BP 96/68; PULSE 108; RESP 16; TEMP 36.6; O2SAT 98; BMI 18.3
--- NOTE | 2023-03-03 16:22 | RAD_ITS ---
EXAM: XR RIGHT ANKLE COMPLETE, 3 OR MORE VIEWS CLINICAL INDICATION: FALL, TRAUMA TECHNIQUE: Frontal, lateral and oblique views of the right ankle. COMPARISON: No relevant prior studies available. FINDINGS: BONES/JOINTS: Unremarkable. No acute fracture. No subluxation. Normal alignment. Preservation of the joint space. No sclerotic or destructive changes observed. SOFT TISSUES: Unremarkable. No soft tissue swelling or gas. No radiopaque foreign body. RAD/Ankle min 3 Views IMPRESSION: Negative right ankle x-rays. Electronically Signed: Bryson Smiley MD at 16:46 EST ,
--- NOTE | 2023-03-03 17:29 | ED.VIS.LOWEX ---
HPI History of Present Illness Chief Complaint: Lower Extremity Injury Detail of Chief Complaint: Injury to right foot and ankle Informant: patient Narrative Narrative: Patient presents to the emergency department with an injury to her right foot and ankle that occurred about 6 days ago. Patient states that she was hanging lights any she stepped off the ladder and missed the last 2 steps thinking she was at the bottom and she injured her right foot and ankle. She has been ambulatory. She does complain of pain with walking. Denies any other injuries. PFSH PFS Medical History (Updated 03/03/23 @ 17:[address] Willian Bedolla DO) Allergies Anxiety back pain Foreign body of skin of right palm Frequent headaches Hearing problem Knee pain Neck pain Shoulder pain Home Medications metaxalone 800 mg tablet (Skelaxin) 800 mg PO TID 7 days #21 tabs 12/02/20 [Rx Last Taken Unknown] Allergy/AdvReac Type Severity Reaction Status Date / Time Penicillins [PCN] Allergy Anaphylaxis Verified 03/03/23 16:15 Family History Father Alcoholism Cancer Mother Anxiety Arthritis History of blood clots Depression Diabetes Heart disease Hypertension High cholesterol Respiratory disease Uncle Alcoholism History of defect Cancer Other CVA (cerebral vascular accident) Surgical History History of cholecystectomy History of hysterectomy Social History Smoking Status: Current every day smoker tobacco type: cigarettes alcohol intake: never substance use type: does not use additional social history: DOES NOT TAKE ASPIRIN DOES TAKE IBUPROFEN NEEDED ROS ROS ED Review of Systems ROS Unobtainable: other Constitutional Constitutional ED: Reports lethargy; Denies chills, fever(s), sweats or weight loss Eyes Eyes: Denies blurry vision, change in vision or diplopia ENT ENT ED: Denies rhinorrhea or sore throat Cardiovascular Cardiovascular: Denies chest pain, orthopnea or racing heartbeat Respiratory/Chest Respiratory/Chest: Denies cough, dyspnea, dyspnea on exertion, orthopnea or sputum Gastrointestinal Gastrointestinal: Denies abdominal pain, diarrhea, nausea or vomiting Genitourinary Genitourinary ED: Denies dysuria, hematuria or urinary frequency Musculoskeletal Musculoskeletal: Reports other Details: Right foot and ankle pain ; Denies arthralgias, back pain, myalgias or neck pain Integumentary Denies abscess, Abrasions or rash Neurologic Neurologic: Denies headache(s) or weakness Psychiatric Psychiatric: Denies anxiety, depression or suicidal thoughts Endocrine Endocrinology: Denies polydipsia, polyphagia or polyuria Hematologic/Lymphatic Hematologic/Lymphatic: Denies easy bleeding, easy bruising or lymphadenopathy Allergic/Immunologic Allergic/Immunologic ED: Denies mouth swelling, tongue swelling or urticaria EXAM Physical Exam Const Vital Signs: 03/03/23 16:15 Temperature 97.9 F Temperature Source Temporal Pulse Rate 108 H Respiratory Rate 16 Blood Pressure 96/68 Blood Pressure Mean 77 Pulse Ox 98 Oxygen Delivery Method Room Air Positive well nourished and well developed General Appearance ED: well developed and NAD HEENT Reports TM's clear and moist mucous membranes normocephalic and atraumatic; Negative for trauma or tenderness Tympanic Membrane ED: Yes TM's clear Eyes PERRL and EOMs intact bilaterally General Eye ED: Negative for pale conjunctiva or scleral icterus Neck no lymphadenopathy, supple and no JVD General: Negative for tenderness Chest Wall inspection of chest normal and palpation of chest normal Chest: Negative for tenderness Resp normal respiratory effort and clear to auscultation bilaterally Effort and Inspection: Negative for respiratory distress or pain with movement Auscultation: Negative for rhonchi, wheezes or diminished lung sounds Cardio regular rate, regular rhythm, S1 normal heart sound, S2 normal heart sound and no murmurs Peripheral Pulses: pulses 2+ throughout GI normal to inspection, nondistended, normoactive bowel sounds, soft to palpation, non-tender, non-distended and no masses Back/Spine no CVA tenderness and no thoracic nor lumbar tenderness Extremity normal to inspection Extremity Narrative: Foot and ankle-there is no ecchymosis or bruising noted. There is no soft tissue swelling. She has some diffuse tenderness to palpation over the medial and lateral malleolus as well as the talotibial joint. No pain at the proximal fibular head. No pain at the base of the fifth metatarsal. Neurovascularly intact. General Extremety ED: Negative for edema General Extremity: Negative for edema Neuro oriented x3, CN's II-XII intact bilaterally, no sensory deficits noted and gait normal Sensorium / Orientation: awake, alert, oriented to person, oriented to place and oriented to time Motor Exam: strength 5/5 throughout and strength abnormal Psych mental status grossly normal Skin no rashes or lesions noted and no wounds MDM MDM MDM Narrative Medical decision making narrative: Presents with injury to right foot and ankle and has been ambulatory. No external evidence of trauma noted. Patient did have an x-ray of the right ankle ordered via protocol prior to my evaluating the patient and this was negative for fracture or dislocation. I offered her crutches which she refused. I will give her an air splint. Advised to use ibuprofen or Tylenol for discomfort. Will refer to podiatry for follow-up if her pain persist. Radiography Diagnostic Testing: Clinical Impression(s) from Imaging Studies Ankle X-Ray 03/03/23 16:22 IMPRESSION: Negative right ankle x-rays. Electronically Signed: Bryson Smiley MD at 16:46 EST , 3 view x-rays of the right ankle obtained interpreted by myself as no evidence of fracture or dislocation. Radiology in agreement. Discharge Plan Triage Chief Complaint: Lower Extremity Injury ED Provider: Willian Bedolla Dx/Rx/DC Orders Clinical Impression: Right ankle sprain, Right foot sprain Instructions: ED Foot Sprain, ED Ankle Sprain (Adult) Prescriptions: No Action metaxalone [Skelaxin] 800 mg tablet 800 mg PO TID 7 Days Qty: 21 0RF Primary Care Provider: Care Physician,No Primary Referrals: Christiano Gibbs DPM [Med Staff - Active Staff] - 5-7 Days Care Physician,No Primary [Primary Care Provider] -
[2023-03-03 17:47] VITALS: RESP 14
== END 2023-03-03 17:48 | disposition home or self-care (01) ==
PROVIDERS: Emergency Provider Emergency Medicine; Visit Provider Emergency Medicine
DX: S93.401A Sprain of unspecified ligament of right ankle, initial encounter (principal); S93.601A Unspecified sprain of right foot, initial encounter; F17.210 Nicotine dependence, cigarettes, uncomplicated; X58.XXXA Exposure to other specified factors, initial encounter
CPT/HCPCS: 73610; 99282

== ENCOUNTER 2024-08-26 19:13 | Emergency (ER) | payer SELFPAY ==
[2024-08-26 19:13] VITALS: PULSE 98; RESP 19; TEMP 36.7; O2SAT 98
--- NOTE | 2024-08-26 19:20 | RAD_ITS ---
PROCEDURE: FOOT MIN 3 VIEWS 08/26/2024 REASON FOR EXAM: PAIN TECHNIQUE: Three views of the right foot. COMPARISON: None. FINDINGS: No evidence of acute fracture or dislocation. The soft tissues are unremarkable. RAD/Foot min 3 Views IMPRESSION: No acute osseous abnormalities. Reading Location: [place] [id number]
[2024-08-26 22:43] VITALS: BP 97/70
--- NOTE | 2024-08-26 22:46 | EX.ED.DYSGE1 ---
HPI History of Present Illness Chief Complaint: Lower Extremity Injury Narrative Narrative: Chief complaint and HPI: Right foot pain. 44-year-old female with history of sleepwalking presents for evaluation of right foot pain. Patient states approximately 5 weeks ago she had an episode where she slept walked and woke up in front of her glass sliding door. States she had bruising to the dorsum of her right foot. Patient states the bruising has resolved however she has continued to have pain in this area. Denies any numbness or tingling. Denies any fever or chills. Denies any redness or signs of infection. Review of systems: See HPI Medications: As listed on the chart Allergies: As listed on the chart PFSH: Per chart Vital signs: As listed on the chart. Reviewed. Physical exam: Gen: A&O x3, NAD Head: Normocephalic, atraumatic Eyes: No sclera icterus, conjunctiva clear ENT: Moist mucous membranes CV: Regular rate Resp: Nonlabored respiration Musc: Full ROM, no deformity, patient has mild tenderness to palpation of the distal dorsum of the foot just proximal to the toes, healing ecchymosis, no erythema/warmth/crepitus, DP/PT pulses +2 bilaterally, no tenderness palpation of the calcaneus, Achilles nontender and intact, good capillary, sensation intact, ankle nontender Skin: Warm, dry Neuro: Alert, oriented, grossly intact, sensation intact Psych: Cooperative, appropriate mood and affect [facility] Medical History (Updated 08/26/24 @ 22:[address] Chan Andrews, DO) Foreign body of skin of right palm Hearing problem Frequent headaches Anxiety Allergies back pain Neck pain Knee pain Shoulder pain Home Medications ?Medication ?Instructions ?Recorded ?Last Taken ?Type metaxalone 800 mg tablet (Skelaxin) 800 mg PO TID 7 days #21 tabs 12/02/20 Unknown Rx Allergy/AdvReac Type Severity Reaction Status Date / Time Penicillins (PCN) Allergy Anaphylaxis Verified 03/03/23 16:15 Family History Father Alcoholism Cancer Mother Anxiety Arthritis History of blood clots Depression Diabetes Heart disease Hypertension High cholesterol Respiratory disease Uncle Alcoholism History of defect Cancer Other CVA (cerebral vascular accident) Surgical History History of hysterectomy History of cholecystectomy Social History Smoking Status: Current every day smoker tobacco type: cigarettes alcohol intake: never substance use type: does not use additional social history: DOES NOT TAKE ASPIRIN DOES TAKE IBUPROFEN NEEDED EXAM Physical Exam Const Vital Signs: 08/26/24 19:13 08/26/24 22:43 Temperature 98.1 F Temperature Source Oral Pulse Rate 98 Respiratory Rate 19 H Blood Pressure 97/70 Blood Pressure Mean 79 Pulse Ox 98 Oxygen Delivery Method Room Air MDM MDM MDM Narrative Medical decision making narrative: 44-year-old female with history of sleepwalking presents for evaluation of right foot pain. Patient states she had a sleepwalking episode approximately 5 weeks ago in which she woke up with bruising on the dorsum of her right foot. Has continued to have pain in this area despite the bruising healing. See physical exam findings. Differential diagnosis includes but is not limited to foot contusion, foot sprain, fracture. X-ray of the right foot was obtained. X-ray of the right foot was personally viewed interpreted by [place], ED physician. No fracture or dislocation. Radiology in agreement. Patient updated of the results. Suspect foot contusion. Motrin and Tylenol as needed for pain. Follow-up with podiatry. She confirmed understanding the plan. Patient stable to discharge home. Impression: 1. Right foot contusion Radiography Diagnostic Testing: Clinical Impression(s) from Imaging Studies Foot X-Ray 08/26/24 19:20 IMPRESSION: No acute osseous abnormalities. Reading Location: [id number] Discharge Plan Triage Chief Complaint: Lower Extremity Injury ED Provider: Chan Andrews Dx/Rx/DC Orders Clinical Impression: Contusion of foot, right Instructions: ED Foot Contusion Prescriptions: No Action metaxalone [Skelaxin] 800 mg tablet 800 mg PO TID 7 Days Qty: 21 0RF Primary Care Provider: Care Physician,No Primary Referrals: Christiano Gibbs DPM [Med Staff - Active Staff] - 3-5 Days Activity Restrictions/Additional Instructions: Tylenol and Motrin as needed for pain. Follow-up with podiatry. Print Language: Bots[place]an Disposition Disposition: Home, Self Care Discharge Date/Time: 08/26/24 22:47
== END 2024-08-26 22:47 | disposition home or self-care (01) ==
PROVIDERS: Emergency Provider Surgery; Visit Provider Surgery
DX: S90.31XA Contusion of right foot, initial encounter (principal); X58.XXXA Exposure to other specified factors, initial encounter; F17.210 Nicotine dependence, cigarettes, uncomplicated
CPT/HCPCS: 73630; 99282

== ENCOUNTER 2025-02-11 14:15 | Emergency (ER) | payer BC, SELFPAY ==
[2025-02-11 14:15] VITALS: BP 122/85; PULSE 92; RESP 18; TEMP 36.6; O2SAT 99; BMI 18.1
--- NOTE | 2025-02-11 15:57 | ED.VIS.BACK ---
HPI History of Present Illness Chief Complaint: Back Narrative Narrative: Chief complaint and HPI: 44-year-old female with no significant past medical history presents for evaluation of right lumbar back pain and left ear pain. Patient states she has been having right lower lumbar back pain for the past several days. Radiates into the right hip/buttocks. Denies any numbness or tingling. Does not shoot down the leg. Patient denies any injury. States it started after she laid down in the back of a car. States she has been using Naprosyn and IcyHot equivalent with some relief. Denies changes in bladder or bowel function, fever, or chills. Patient states she has also had some swelling inside her left ear canal. States she has a history of frequent ear infections which have required drops in the past. States she has mild pain. Denies any change in hearing or hearing loss. Denies any URI symptoms. Denies any drainage. Review of systems: See HPI Medications: As listed on the chart Allergies: As listed on the chart PFSH: Per chart Vital signs: As listed on the chart. Reviewed. Physical exam: Gen: A&O x3, NAD Head: Normocephalic, atraumatic Eyes: No sclera icterus, conjunctiva clear, PERRL, EOMI ENT: EAC and tympanic membrane clear on the right, patient has mild swelling to the EAC on the left but tympanic membrane is visualized and clear without infection - no drainage or purulence, no mastoid enlargement or tenderness bilaterally, no parotid tenderness or enlargement bilaterally, moist mucous membranes, posterior oropharynx unremarkable, uvula midline, tonsils not enlarged Neck: Trachea midline, Full ROM, No meningismus CV: RRR, no murmur Resp: Lungs CTA BL, no w/r/c GI: Abd soft, non-distended, non-tender, no r/r/g Musc: Full ROM, no deformity no midline spinal tenderness, no bony step-offs, patient has mild tenderness to palpation of the paraspinal musculature on the right-palpation recreates her pain-muscles are tense, strength +5/5 in all extremities, no saddle paresthesias, DP/PT pulses +2, sensation intact Skin: Warm, dry, no rash Psych: Cooperative, appropriate mood and affect [facility] Medical History (Updated 02/11/25 @ 15:[address] Chan Andrews, DO) Foreign body of skin of right palm Hearing problem Frequent headaches Anxiety Allergies back pain Neck pain Knee pain Shoulder pain Home Medications ?Medication ?Instructions ?Recorded ?Last Taken ?Type cyclobenzaprine 5 mg tablet 5 mg PO TID PRN muscle spasm 3 02/11/25 Unknown Rx days #9 tabs ofloxacin 0.3 % ear drops 10 drp LEFT EAR DAILY 7 days #10 mL 02/11/25 Unknown Rx Allergy/AdvReac Type Severity Reaction Status Date / Time Penicillins (PCN) Allergy Anaphylaxis Verified 02/11/25 14:17 Family History Father Alcoholism Cancer Mother Anxiety Arthritis History of blood clots Depression Diabetes Heart disease Hypertension High cholesterol Respiratory disease Uncle Alcoholism History of defect Cancer Other CVA (cerebral vascular accident) Surgical History History of hysterectomy History of cholecystectomy Social History Smoking Status: Current every day smoker tobacco type: cigarettes alcohol intake: never substance use type: does not use additional social history: DOES NOT TAKE ASPIRIN DOES TAKE IBUPROFEN NEEDED EXAM Physical Exam Const Vital Signs: 02/11/25 14:15 Temperature 97.8 F Temperature Source Oral Pulse Rate 92 Respiratory Rate 18 Blood Pressure 122/85 H Blood Pressure Mean 97 Pulse Ox 99 Oxygen Delivery Method Room Air MDM MDM MDM Narrative Medical decision making narrative: 44-year-old female with no significant past medical history presents for evaluation of right lumbar back pain and left ear pain. There has been no trauma. There is no neurologic findings to suggest an acute cauda equina syndrome, infectious etiology of the back, or any acute radiculopathy. At this point I do not feel any emergent imaging such as x-rays or MRI are warranted. Patient symptoms will be treated with IM Toradol and Valium. Suspect myofascial spasm. No suspicion for fracture. Physical exam is consistent with otitis externa of the left ear. Patient will be given ofloxacin drops. Patient was educated on gentle stretching and rest for her back pain. Ibuprofen, Tylenol, heating pad, muscle relaxers as needed. Prescription written. Return precautions explained. Follow-up with primary care physician. She confirmed understanding of the plan. Patient will discharge home. Impression: 1. Right lumbar paraspinal musculature spasm 2. Left otitis externa Discharge Plan Triage Chief Complaint: Back Other Complaint: Ear Problem ED Provider: Chan Anrdews Dx/Rx/DC Orders Clinical Impression: Lumbar paraspinal muscle spasm, Otitis externa Instructions: ED Back Spasm, No Trauma, ED External Ear Infection (Adult) Prescriptions: New cyclobenzaprine 5 mg tablet 5 mg PO TID PRN (Reason: muscle spasm) 3 Days Qty: 9 0RF ofloxacin 0.3 % drops 10 drp LEFT EAR DAILY 7 Days Qty: 10 0RF Discontinued metaxalone [Skelaxin] 800 mg tablet 800 mg PO TID 7 Days Qty: 21 0RF Primary Care Provider: Care Physician,No Primary Referrals: Vasquez Fraire MD [Med Staff - Active Staff, Family Practice] - 3-5 Days Activity Restrictions/Additional Instructions: You received Toradol here in the emergency department. No ibuprofen, naproxen, Aleve for the next 8 hours. Okay for them afterwards. Okay for Tylenol. Rest. Heating pad and IcyHot as needed. Gentle stretching. Muscle relaxers as needed for spasms. Do not drive or operate heavy machinery while taking muscle relaxers. They can incacrease fatigue, falls, confusion, weakness. Follow-up with primary care physician. Use your antibiotic drops. Print Language: Indonesian Disposition Disposition: Home, Self Care
== END 2025-02-11 16:27 | disposition home or self-care (01) ==
PROVIDERS: Emergency Provider Surgery; Visit Provider Surgery
DX: M62.830 Muscle spasm of back (principal); H60.92 Unspecified otitis externa, left ear; F17.210 Nicotine dependence, cigarettes, uncomplicated
CPT/HCPCS: 96372; 99283